=== PATIENT | male | born 1970 | race Caucasian/White ===

== ENCOUNTER 2019-01-01 06:02 | Day surgery (SDC) | payer BC, OTHER ==
[~2019-01-01] VITALS: Ht 165.1 cm; Wt 76.9 kg
[~2019-01-01 06:02] MED LIST: ASPI-1044 PO; ATOR40TA21 PO; CLOP75TA19 PO; COSENTYX; LISI10TA2 PO; METH2.5T33 PO; NORVASC; OMEP20CA16 PO; RANITIDINE; [UNRECOGNIZED DRUG - CODE] PO; [UNRECOGNIZED DRUG - OTHER]
[2019-01-01 07:38] VITALS: BP 156/86; PULSE 46; RESP 14
[2019-01-01 07:45] VITALS: Ht 165.1 cm; Wt 76.9 kg
== END 2019-01-01 11:59 | disposition home or self-care (01) ==
LOC: GIL 06:02
PROVIDERS: ATTEND Internal Medicine Gastroenterology
DX: Z12.11 Encounter for screening for malignant neoplasm of colon (principal); D12.8 Benign neoplasm of rectum; D64.4 Congenital dyserythropoietic anemia; K57.30 Diverticulosis of large intestine without perforation or abscess without bleeding; K29.51 Unspecified chronic gastritis with bleeding; I10 Essential (primary) hypertension; I25.10 Atherosclerotic heart disease of native coronary artery without angina pectoris; I25.2 Old myocardial infarction; Z79.82 Long term (current) use of aspirin
CPT/HCPCS: 43239; 45380; Z7610; 88305; 88312